=== PATIENT | female | born 2000 | race Caucasian/White ===

== ENCOUNTER 2022-10-15 15:39 | Emergency (ER) | payer MEDICAID, SELFPAY ==
[2022-10-15 15:40] VITALS: BP 119/93; PULSE 128; RESP 16; TEMP 36.3; O2SAT 100; BMI 20.7
--- NOTE | 2022-10-15 15:51 | EX.ED.DYSGE1 ---
HPI History of Present Illness Chief Complaint: General Illness Detail of Chief Complaint: URI symptoms last 2 days. Informant: patient Onset/Context/Timing Onset: Today and Yesterday Context: Gradual Onset Timing: Continuous Current Severity: Mild Maximum Severity: Mild Narrative Narrative: 22-year-old female no seen past medical history other than depression. She has had URI symptoms for last 2 days cough and fever. No vomiting or diarrhea. No dysuria. She works at [employer] many of her coworkers have been calling off ill recently. Prior similar symptoms: Yes Recent Illness/Hospitalization: No PFSH PFSH Home Medications escitalopram oxalate 10 mg tablet (Lexapro) 10 mg PO DAILY 10/15/22 [History Last Taken Unknown] Allergy/AdvReac Type Severity Reaction Status Date / Time azithromycin Allergy Angioedema Verified 10/15/22 15:45 Surgical History History of cholecystectomy Social History Smoking Status: Never smoker ROS ROS ED ROS Narrative Cough. Subjective fever. Review of Systems ROS Unobtainable: Denies due to encephalopathy Constitutional Constitutional ED: Reports fever(s); Denies chills Eyes Eyes: Denies blurry vision ENT ENT ED: Denies ear pain Cardiovascular Cardiovascular: Denies chest pain Respiratory/Chest Respiratory/Chest: Reports cough; Denies dyspnea Gastrointestinal Gastrointestinal: Denies abdominal pain Genitourinary Genitourinary ED: Denies dysuria or hematuria Musculoskeletal Musculoskeletal: Denies arthralgias Integumentary Denies abscess Neurologic Neurologic: Denies headache(s) Endocrine Endocrinology: Denies cold intolerance Hematologic/Lymphatic Hematologic/Lymphatic: Reports none Allergic/Immunologic Allergic/Immunologic ED: Denies mouth swelling or tongue swelling EXAM Physical Exam Narrative Exam Narrative: 22-year-old female no acute distress vital signs stable afebrile. Pulse ox 9% on room air no signs hypoxia. Afebrile. She does not look septic or toxic. H EENT exam normal. Moist Riis membranes. TMs normal. Neck nontender no lymphadenopathy no meningismus. Lungs clear to auscultation bilaterally. Heart tachycardic no murmur. Abdomen soft nontender. Moving all 4 extremities. Nontender no edema. Neurologically she is awake and alert no focal motor deficits. Back nontender. History and exam are consistent with a viral URI. Const Vital Signs: 10/15/22 15:40 10/15/22 15:47 10/15/22 16:01 Temperature 97.4 F L Temperature Source Temporal Pulse Rate 128 H Respiratory Rate 16 17 Respiratory Effort Normal Non-Labored Respiratory Pattern Normal Blood Pressure 119/93 H Blood Pressure Mean 101 Pulse Ox 100 Oxygen Delivery Method Room Air Positive well nourished and well developed; Negative for obese, cachectic, contractures or unkempt General Appearance ED: well developed and NAD; Negative for unkempt, cachectic, contractures, cyanotic, diaphoretic or pallor Nutritional Appearance: Negative for cachectic or obese HEENT Reports moist mucous membranes; Denies dry mucous membranes Negative for trauma or tenderness Mouth ED: No dry mucous membranes Mouth: No dry mucous membranes Eyes PERRL and EOMs intact bilaterally General Eye ED: Negative for pale conjunctiva, scleral icterus or other Neck no lymphadenopathy, supple and no JVD General: Negative for tenderness Lymph Lymphatic: Negative for other Chest Wall inspection of chest normal and palpation of chest normal Chest: Negative for other Resp normal respiratory effort and clear to auscultation bilaterally Effort and Inspection: Negative for retractions Auscultation: Negative for rales, rhonchi or wheezes Cardio regular rhythm, S1 normal heart sound, S2 normal heart sound and no murmurs; Negative for regular rate Rate: tachycardic GI normal to inspection, nondistended, normoactive bowel sounds, non-tender, non-distended and no masses Inspection: Negative for abdominal distention Auscultation: normoactive bowel sounds Palpation: soft; Negative for tender or guarding Back/Spine no CVA tenderness General Back: Negative for CVA tenderness Cervical Spine: Negative for cervical spine tenderness Thoracic Spine / Upper Back: Negative for thoracic spinal tenderness Lumbar Spine / Lower Back: Negative for lumbar spinal tenderness Extremity normal to inspection General Extremety ED: Negative for edema or tenderness General Extremity: Negative for edema Neuro oriented x3 and CN's II-XII intact bilaterally Sensorium / Orientation: alert; Negative for orientation impaired, lethargic or stuporous Motor Exam: strength 5/5 throughout Psych mental status grossly normal Appearance: Negative for unkempt or other Attitude: No agitated Mood & Affect: Negative for depressed or anxious Skin no rashes or lesions noted, no wounds and skin turgor normal General Skin Exam: Negative for elasticity normal, jaundice or pallor Lesions: No lesion noted Rashes: No rashes noted Trauma: Negative for abrasion Wounds: Negative for wounds noted MDM MDM MDM Narrative Medical decision making narrative: 22-year-old with URI symptoms. I suspect either influenza or potentially COVID versus other viral syndromes. She clinically looks well. She night discussed and she really did not want any testing or an x-ray which I do not clinically think is necessary either. She will be written off of work and discharged home. Follow-up with her primary care provider if not improving return if worse. Discharge Plan Triage Chief Complaint: General Illness ED Provider: Leonidas Jason Dx/Rx/DC Orders Clinical Impression: Viral syndrome Instructions: ED URI, Viral, No Abx (Adult) Prescriptions: No Action escitalopram oxalate [Lexapro] 10 mg Tablet 10 mg PO DAILY Primary Care Provider: Verónica Reilly Referrals: Verónica Reilly PA [Primary Care Provider] - 1 Week if not improving Activity Restrictions/Additional Instructions: Plenty of fluids and rest. Alternate Tylenol and Motrin for body aches Follow-up with your primary care provider if not improving return if worse. Disposition Disposition: Home, Self Care
[2022-10-15 16:01] VITALS: RESP 17
== END 2022-10-15 16:08 | disposition home or self-care (01) ==
LOC: ED 16:05
PROVIDERS: Emergency Provider Emergency Medicine; PCP Physician Assistant; Visit Provider Emergency Medicine
DX: B34.9 Viral infection, unspecified (principal); F32.A Depression, unspecified; Z79.899 Other long term (current) drug therapy
CPT/HCPCS: 99282

== ENCOUNTER → 2025-01-07 | Outpatient (CLI) | payer OTHER, BC, SELFPAY ==
--- NOTE | 2025-01-07 10:51 | MRI_ITS ---
PROCEDURE: UPPER EXT JOINT ONLY(ROUTINE) REASON FOR EXAM: Left shoulder strain. TECHNIQUE: MRI of the left shoulder without contrast COMPARISON: None provided. FINDINGS No abnormal osseous signal is seen. No joint effusion is evident. No significant arthritic changes are seen. No glenoid labral tear is evident. Mild infraspinatus tendinosis is seen. No rotator cuff tear is noted. The long head of the biceps tendon appears intact. MRI/Upper Ext Joint Only(Routine) IMPRESSION: Mild infraspinatus tendinosis. Reading Location: [address]
== END | disposition home or self-care (01) ==
LOC: MRI 10:36
PROVIDERS: PCP Physician Assistant; Referring Provider Physician Assistant Surgical; Visit Provider Physician Assistant Surgical
DX: S46.912A Strain of unspecified muscle, fascia and tendon at shoulder and upper arm level, left arm, initial encounter (principal); X58.XXXA Exposure to other specified factors, initial encounter
CPT/HCPCS: 73221

== ENCOUNTER 2025-03-15 16:30 | Outpatient (RCR) | payer OTHER, BC, SELFPAY ==
--- NOTE | 2025-02-14 17:50 | HP.PTEVAL ---
Patient's Visit Information Visit Information Visit Information: CAROLYN GORDON is a 24 year old F referred to Physical Therapy by MARICHUY Covington with a diagnosis of L shoulder strain. Date of Evaluation: 02/14/25 Physical Therapist: Nick Arzola, DPT, OCS, CSCS Visit Plan Frequency: 3x /Week Duration: 4-6 Weeks Plan: 3x/week for 4-6 weeks for 1. US nonthrmal to L infra/supra insertion, manual PROM and grade 1 mobs 2. strength scapula and RC to HEP 3. ice and CFM as needed to L infraspinatus 4. eensure home activity modification is approrpiate IE HP scap circles 15x 3xday and posture, activity modification for impingement, avoid aggravating activites. Subjective Subjective: Hurt L shoulder at work in December by lifting heavy stuff and tried to throw it up on something and caused pain. 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 Next day was very painful and sent to [facility]. Gav steroids and f/u and still hurt and got pain meds and MRI which showed inflammation in shoulder. It is improving slowly. Still hurts to move and it clicks. 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 Works 40 hrs per week. That is an easier job. Basic ADLS all getting done without pain. reaching into cupboards might hurt and driving is limited L arm usage. Sleep: cannot sleep on left side. right handed. Pain L shoulder: Pain Intensity (Out of 10): 0 Pain Intensity Range: 0 and 5 Comment: shooting Objective Objective: Walks into PT I and transfers bed adn chair I. Posture is forward head and protracted scapula B, L wings slightly at rest and moreso with arm elevation to 30 and 90. Tender to palpation L infraspinatus into supraspinatus tendon locally, also into UT L not R. AROM L UE is WFL but pain end range of ext rotation adn elevation, also with horiz adduction, Motion similar to R. elbow and wrist aAROM WFL and symmetircal. reflxes 2/3 bi and tri Sensation WNL to gross light touch B UE. strength is 3+ in scap retraction and depression B. 3+ shouder flexion and abd on L with pain L and 4- R. elbow and wrist strength 4 without pain. + empty can on L, + HK, + neer all on L, - apprehension, - sulcus Balance/Special Test Scores Quick DASH Score: 34.0900 Goals Goal 1:: Sleep without interruption due to shoulder pain Goal Time Frame: 4-6 Weeks Goal 2:: pain in L shouldr 90% better and 1/10 at worst Goal Time Frame: 4-6 Weeks Goal 3:: Return to full duty at work without pain Goal Time Frame: 4-6 Weeks Goal 4:: quickdash score 15 or better Goal Time Frame: 4-6 Weeks Goal 5:: I appropriate HEP to minimize future problems Goal Time Frame: 4-6 Weeks Rehabilitation Potential Physical Therapy Diagnosis: L shoulder pain and weakness and poor posture limiting ability to heal Rehabilitation Potential: Fair Anticipated Interventions Patient/Client Instruction: Educate patient on: Condition and Plan of Care For the Purpose of:: To decrease pain, To increase ROM, To improve nutrient delivery to tissue and To increase tolerance to activity/condition/position Therapeutic Exercise to Include: Strength training and Scapular Strength/Stabilization For the Purpose of:: To decrease pain, To increase ROM, To improve nutrient delivery to tissue, To increase tolerance to activity/condition/position and To improve ability of physical actions for home/community/work/leisure Manual Therapy Techniques to Include: Mobilization, Passive ROM and Soft tissue mobilization For the Purpose of:: To decrease swelling/inflammation, To increase ROM and To improve nutrient delivery to tissue Cryotherapy (ice pack, ice massage): Yes Ultrasound (thermal/non thermal): Yes (nonthermal) For the Purpose of:: To decrease pain and To decrease swelling/inflammation Text: Thank you for the opportunity to evaluate your patient. For Medicare and Medicare HMO plans, please review the plan of care and approve it. It will need to be FAXED BACK to us at [phone] for Medicare purposes. For Medicare only, by signing this I certify the plan of care. Please let me know if there are questions or concerns regarding this plan of care. Physician Signature: Date:
--- NOTE | 2025-02-14 17:50 | HP.PTEVAL ---
Patient's Visit Information Visit Information Visit Information: CAROLYN GORDON is a 24 year old F referred to Physical Therapy by MARICHUY Covington with a diagnosis of L shoulder strain. Date of Evaluation: 02/14/25 Physical Therapist: Nick Arzola, DPT, OCS, CSCS Visit Plan Frequency: 3x /Week Duration: 4-6 Weeks Plan: 3x/week for 4-6 weeks for 1. US nonthrmal to L infra/supra insertion, manual PROM and grade 1 mobs 2. strength scapula and RC to HEP 3. ice and CFM as needed to L infraspinatus 4. eensure home activity modification is approrpiate IE HP scap circles 15x 3xday and posture, activity modification for impingement, avoid aggravating activites. Subjective Subjective: Hurt L shoulder at work in December by lifting heavy stuff and tried to throw it up on something and caused pain. 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 Next day was very painful and sent to [facility]. Gav steroids and f/u and still hurt and got pain meds and MRI which showed inflammation in shoulder. It is improving slowly. Still hurts to move and it clicks. 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 That is an easier job. Basic ADLS all getting done without pain. reaching into cupboards might hurt and driving is limited L arm usage. Sleep: cannot sleep on left side. right handed. Pain L shoulder: Pain Intensity (Out of 10): 0 Pain Intensity Range: 0 and 5 Comment: shooting Objective Objective: Walks into PT I and transfers bed adn chair I. Posture is forward head and protracted scapula B, L wings slightly at rest and moreso with arm elevation to 30 and 90. Tender to palpation L infraspinatus into supraspinatus tendon locally, also into UT L not R. AROM L UE is WFL but pain end range of ext rotation adn elevation, also with horiz adduction, Motion similar to R. elbow and wrist aAROM WFL and symmetircal. reflxes 2/3 bi and tri Sensation WNL to gross light touch B UE. strength is 3+ in scap retraction and depression B. 3+ shouder flexion and abd on L with pain L and 4- R. elbow and wrist strength 4 without pain. + empty can on L, + HK, + neer all on L, - apprehension, - sulcus Balance/Special Test Scores Quick DASH Score: 34.0900 Goals Goal 1:: Sleep without interruption due to shoulder pain Goal Time Frame: 4-6 Weeks Goal 2:: pain in L shouldr 90% better and 1/10 at worst Goal Time Frame: 4-6 Weeks Goal 3:: Return to full duty at work without pain Goal Time Frame: 4-6 Weeks Goal 4:: quickdash score 15 or better Goal Time Frame: 4-6 Weeks Goal 5:: I appropriate HEP to minimize future problems Goal Time Frame: 4-6 Weeks Rehabilitation Potential Physical Therapy Diagnosis: L shoulder pain and weakness and poor posture limiting ability to heal Rehabilitation Potential: Fair Anticipated Interventions Patient/Client Instruction: Educate patient on: Condition and Plan of Care For the Purpose of:: To decrease pain, To increase ROM, To improve nutrient delivery to tissue and To increase tolerance to activity/condition/position Therapeutic Exercise to Include: Strength training and Scapular Strength/Stabilization For the Purpose of:: To decrease pain, To increase ROM, To improve nutrient delivery to tissue, To increase tolerance to activity/condition/position and To improve ability of physical actions for home/community/work/leisure Manual Therapy Techniques to Include: Mobilization, Passive ROM and Soft tissue mobilization For the Purpose of:: To decrease swelling/inflammation, To increase ROM and To improve nutrient delivery to tissue Cryotherapy (ice pack, ice massage): Yes Ultrasound (thermal/non thermal): Yes (nonthermal) For the Purpose of:: To decrease pain and To decrease swelling/inflammation Text: Thank you for the opportunity to evaluate your patient. For Medicare and Medicare HMO plans, please review the plan of care and approve it. It will need to be FAXED BACK to us at [phone] for Medicare purposes. For Medicare only, by signing this I certify the plan of care. Please let me know if there are questions or concerns regarding this plan of care. Physician Signature: Date:
--- NOTE | 2025-03-09 17:22 | HP.PTREVAL ---
Re-Evaluation Intro: MARICHUY Covington, It has been my pleasure to treat CAROLYN GORDON over the last 10 visits for L shoulder strain. Please see the progress note below for an update on the physical therapy plan of care! Subjective Subjective: Somewhat better. Not as restricted with movement in L shoulder. Pain level around 4/10 without doing much at work today. This is a good day. Typically a 6/10 with movement and can linger. MH helps after work. Sleep is OK for the most part, intermittnet pain with higher activities at work. 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 Restrictions are to avoid lifting greater than 5# and reaching down adn up, no pushing or pulling. I still being made to reach up above head and takes breaks if hurting and theey get on her. To doctor on the . HEP: Band exercises and ROM stretches daily and they help. Using OTB and does 3x12. PT is helping with pain. Works thursday thru Thursday and is hurting those days, much better on weken.Home activities: avoids walking dog with pulling on leash. Reaching up to put dishes away is still limiting. Objective Objective/Function: Full aROM g-h L side, scapula is unstable on L and sits off rib cage winging moreso than R but both do so. Very tender along rhomboids and traps in L scapula. strength L shoulder is 3+ er, ir and felxion and abduction without much increase in pain. Pt appears to have scapular soft tissue inflammation still and seems exacerbated by continued work activities doing better on the weekends. Will see doctor next week for f/u . Plan Plan Plan: 3x/week for 8 more visits. work on posture and scapular positioning and strength with hughstons exercises and g-h elevation with scapula tighto on rib cage adn serratus strength. Ensure scap retraction with exercises and posture. may use TENS and STM to L scap MM at end, but ensure aggressive strength in appropriate position. Balance/Gait/Functional tests Balance/Special Test Scores Quick DASH Score: 36.3625 Goals Goals Goal 1:: Sleep without interruption due to shoulder pain Goal Time Frame: 4-6 Weeks Goal Progress: Progressing Goal 2:: pain in L shouldr 90% better and 1/10 at worst Goal Time Frame: 4-6 Weeks Goal 3:: Return to full duty at work without pain Goal Time Frame: 4-6 Weeks Goal 4:: quickdash score 15 or better Goal Time Frame: 4-6 Weeks Goal Progress: Not Progressing Goal 5:: I appropriate HEP to minimize future problems Goal Time Frame: 4-6 Weeks Goal Progress: Progressing Anticipated Interventions Anticipated Interventions Patient/Client Instruction: Educate patient on: Condition and Plan of Care For the Purpose of:: To decrease pain, To increase ROM, To improve nutrient delivery to tissue and To increase tolerance to activity/condition/position Therapeutic Exercise to Include: Strength training and Scapular Strength/Stabilization For the Purpose of:: To decrease pain, To increase ROM, To improve nutrient delivery to tissue, To increase tolerance to activity/condition/position and To improve ability of physical actions for home/community/work/leisure Manual Therapy Techniques to Include: Mobilization, Passive ROM and Soft tissue mobilization For the Purpose of:: To decrease swelling/inflammation, To increase ROM and To improve nutrient delivery to tissue Cryotherapy (ice pack, ice massage): Yes Ultrasound (thermal/non thermal): Yes (nonthermal) For the Purpose of:: To decrease pain and To decrease swelling/inflammation Re-Evaluation Ending Re-evaluation ending: Please do not hesitate to contact me at [phone] by phone or if you have questions or concerns regarding this new plan of care! Sincerely, Nick Arzola, DPT, OCS, CSCS
--- NOTE | 2025-05-11 13:18 | HP.PT.NRP ---
Patient Information Patient Information: CAROLYN GORDON was seen in my office for initial evaluation on 02/14/25. The following Plan of Care was established for this patient: POC Established Initial Frequency: 3x /Week Initial Duration: 4-6 Weeks Anticipated Interventions Patient/Client Instruction: Educate patient on: Condition and Plan of Care For the Purpose of:: To decrease pain, To increase ROM, To improve nutrient delivery to tissue and To increase tolerance to activity/condition/position Therapeutic Exercise to Include: Strength training and Scapular Strength/Stabilization For the Purpose of:: To decrease pain, To increase ROM, To improve nutrient delivery to tissue, To increase tolerance to activity/condition/position and To improve ability of physical actions for home/community/work/leisure Manual Therapy Techniques to Include: Mobilization, Passive ROM and Soft tissue mobilization For the Purpose of:: To decrease swelling/inflammation, To increase ROM and To improve nutrient delivery to tissue Cryotherapy (ice pack, ice massage): Yes Ultrasound (thermal/non thermal): Yes (nonthermal) For the Purpose of:: To decrease pain and To decrease swelling/inflammation Last Seen Last Seen: This patient was last seen in our office 03/15/25. Pertinent comments regarding their Physical therapy will appear below: Pt seen in my office for 12 visits of 18 visit POC. Was 60% better at last recheck. She did not schedule or attend the rest of her POC. at this point, it has been nearly two months and I will discontinue due to nonattendance. At this point I will be discontinuing this patient from physical therapy. I would be happy to see this patient again in the future if found appropriate by the physician. Thank you! Nick Arzoal, DPT, OCS, CSCS Balance/Gait/Functional tests Balance/Special Test Scores Quick DASH Score: 36.9623
== END 2025-03-15 19:00 | disposition home or self-care (01) ==
LOC: PT 16:30
PROVIDERS: PCP Physician Assistant; Referring Provider Physician Assistant Surgical; Visit Provider Physician Assistant Surgical
DX: S46.912D Strain of unspecified muscle, fascia and tendon at shoulder and upper arm level, left arm, subsequent encounter (principal)
CPT/HCPCS: 97014; 97035; 97110; 97140; 97161; 97530; G0283